=== PATIENT | male | born 1990 | race Two or more races ===

== ENCOUNTER 2018-06-24 01:48 | Emergency (ER) | payer SELFPAY ==
[~2018-06-24] VITALS: Ht 175.3 cm; Wt 81.2 kg
--- NOTE | 2018-06-24 01:57 | NUR ---
PT TO ER BED 1. BIBRA FROM HOME S/P WITNESSED SEIZURE, DENIES HX. ADMITS TO ETOH AND WEED. PT PLACED ON [employer]. VSS/RESP EVEN UNLABORED/NAD NOTED/SKIN WARM AND DRY/AFEBRILE/DENIES N-V-D/AOX4. AWAITNG MD SRIVASTAVA.
--- NOTE | 2018-06-24 01:58 | NUR ---
20G IV TO R AC X 1 ATTEMPT USING ASEPTIC TECH, BLOOD HANDED OVER TO THE LAB AT BEDSIDE. IV FLUSHES EASILY WITH NS, NO S/S INFILTRATION NOTED AT THIS TIME.
[2018-06-24 02:20] LABS: BASOPHILS % (AUTO) 0.5 % (0.0-2.0); EOSINOPHILS % (AUTO) 2.1 % (0.0-6.0); HEMATOCRIT 42 % (39-51); HEMOGLOBIN 14.1 g/dL (13.5-17.5); MEAN CORPUSCULAR HGB CONC 33 g/dl (31.0-36.0); MEAN CORPUSCULAR VOLUME 93 fL (80-96); MONOCYTES # (AUTO) 0.6 /CMM (0.1-1.30); MONOCYTES % (AUTO) 7.1 % (2.0-12.0); NEUTROPHILS % (AUTO) 56.3 % (43.0-81.0); PLATELET COUNT (AUTO) 307 /CMM (150-450); RDW COEFFICIENT OF VARIATION 14.1 (11.5-15.0); RED BLOOD CELL COUNT(AUTO) 4.54 MIL/uL (4.5-6.0); WHITE BLOOD COUNT (AUTO) 8.9 K/uL (4.3-11.0)
[2018-06-24 02:55] LABS: INR 0.97 (0.87-1.13)
[2018-06-24 03:08] LABS: CALCIUM, SERUM 9.3 mg/dL (8.5-10.1); CARBON DIOXIDE 16 mmol/L (21-32); CHLORIDE 92 mmol/L (98-107); CREATININE 1.7 mg/dL (0.6-1.3); GLUCOSE 143 mg/dL (74-106); SODIUM SERUM 131 mmol/L (136-145); UREA NITROGEN, BLOOD 12 mg/dL (7-18)
[2018-06-24 03:16] LABS: ALANINE AMINOTRANSFERASE 17 U/L (12-78); ALBUMIN 4.4 g/dL (3.4-5.0); ALKALINE PHOSPHATASE 47 U/L (46-116); ASPARTATE AMINOTRANSFERASE 24 U/L (15-37); BILIRUBIN,DIRECT 0.2 mg/dL (0.0-0.2); BILIRUBIN,TOTAL 1.4 mg/dL (0.2-1.0); TOTAL PROTEIN, SERUM 7.7 g/dL (6.4-8.2)
[2018-06-24 03:19] LABS: ALCOHOL, BLOOD < 3 mg/dL (0-0); POTASSIUM 2.8 mmol/L (3.5-5.1)
--- NOTE | 2018-06-24 03:19 | NUR ---
URINE SPECIMEN OBTAINED AND SENT TO THE LAB.
[2018-06-24] MEDS ORDERED: POTASSIUM CHLORIDE 20 MEQ TAB.PRT.SR PO ONE ×3 (03:30→03:34)
[2018-06-24 03:41] LABS: APPEARANCE,URINE CLEAR (CLEAR); BILIRUBIN,URINE NEGATIVE (NEGATIVE); BLOOD, URINE 1+ Ery/uL (NEGATIVE); COLOR,URINE YELLOW (YELLOW); KETONES,URINE NEGATIVE (NEGATIVE); LEUKOCYTE ESTERASE ,URINE NEGATIVE (NEGATIVE); NITRITE, URINE NEGATIVE (NEGATIVE); PROTEIN,URINE NEGATIVE (NEGATIVE); UGLUCOSE NEGATIVE (NEGATIVE); UROBILINOGEN,URINE 0.2 EU/dL (0.2)
--- NOTE | 2018-06-24 03:56 | NUR ---
RT AT BEDSIDE FOR ABG.
[2018-06-24 04:14] LABS: BACTERIA,URINE None seen /HPF (None Seen); SQUAMOUS EPITHELIAL CELL,UR Few /HPF (None Seen); WBC,URINE 0-2 /HPF (0-3)
[2018-06-24 04:23] LABS: SALICYLATE < 2.0 mg/dL (2.8-20.0)
[2018-06-24 04:25] LABS: ACETAMINOPHEN < 3 ug/ml (10-30)
[2018-06-24 05:23] LABS: CREATINE KINASE, TOTAL 617 U/L (39-308)
[2018-06-24 05:39] VITALS: BP 128/70
--- NOTE | 2018-06-24 05:40 | NUR ---
IV removed. Catheter intact and site benign. Pressure and 4x4 applied to site. No bleeding noted. Pt ambulatory w/ steady gait, resp even & unlabored, VSS w/ no acute distress noted. Pt given prescription for potassium and instructed not to drive for seizures, to follow up w/ PCP. Patient discharged to home in stable condition. Written and verbal after care instructions given. Patient verbalizes understanding of instruction.
== END 2018-06-24 05:40 | disposition home or self-care (01) ==
LOC: ER 01:50
DX: R56.9 Unspecified convulsions (principal); F14.10 Cocaine abuse, uncomplicated; F19.10 Other psychoactive substance abuse, uncomplicated; E87.1 Hypo-osmolality and hyponatremia; E87.6 Hypokalemia; F12.10 Cannabis abuse, uncomplicated
CPT/HCPCS: 36415; 70450; 71045; 80048; 80076; 80305; 80329; 81001; 82550; 82553; 82962; 83605; 85025; 85730; 93005; 99285; A4606; G0480 ×2; Z7610; 81000-TC